=== PATIENT | female | born 1990 | race Caucasian/White ===

== ENCOUNTER 2024-08-31 08:01 | Emergency (ER) | payer OTHER, SELFPAY ==
--- OUTSIDE RECORDS SUMMARY | 2024-08-31 08:12 | XMS_ITS | Clinical Summary ---
Author Organization [facility] Address [address] [place] [id number] Care Team Providers Care Compliance Mgr Name Role Phone No, Physician Primary Care Provider [phone] Social History Tobacco Use Types Packs/Day Years Used Date Smoking Tobacco: Never Assessed Personal Safety Answer Date Recorded Getting School Help Needed Not on file 10/17 Comments Unknown Sex and Gender Information Value Date Recorded Sex Assigned at Not on file Legal Sex Female 9:17 AM MLT Gender Identity Not on file Sexual Orientation Not on file Plan of Treatment Not on file Insurance [facility] [employer] S[employer] Care Teams Compliance Mgr Relationship Specialty Start Date End Date No, Physician PCP - General 10/18/23
--- OUTSIDE RECORDS SUMMARY | 2024-08-31 08:12 | XMS_ITS | Referral Summary ---
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
--- NOTE | 2024-08-31 08:14 | ED.URI ---
HPI - URI/Sore Throat General Chief Complaint: Upper Respiratory Infection Stated Complaint: cough and headache/hot and sore Time Seen by Provider: 08/31/24 08:14 Source: patient and RN notes reviewed Mode of arrival: ambulatory Limitations: no limitations History of Present Illness HPI Narrative: 34 y/o female presented for c/o headache, sore throat, body aches, sinus pressure/congestion, cough, fever/chills. Onset yesterday. Not taking anything for symptoms. Patient vapes. Denies sob, wheezing, n/v/d. MD elicited complaint: cough Related Data Allergies Allergy/AdvReac Type Severity Reaction Status Date / Time cefaclor (From [facility]) Allergy Severe Anaphylaxis Verified 08/31/24 08:24 Review of Systems Review of Systems: per [facility] Social History Social History (Updated 08/31/24 @ 08:48 by Eduarda Payton, WATER QUALITY MANAGER) Tobacco type: e-cigarettes/vaping Exam Narrative: GENERAL: well-appearing, nontoxic no acute distress. EYES: conjunctivae clear ENT: Mucous membranes moist. TM pearly lindsey with dull light reflex bilaterally; no tragal tenderness. Oropharynx erythematous without lesions or exudate, no drooling, no hoarseness, no trismus, uvula midline. No tripod positioning, muffled voice, soft palate or pharyngeal wall bulging NECK: Supple. No lymphadenopathy CHEST: Clear to auscultation, breath sounds equal. No wheezing, rhonchi, rales, or stridor. No respiratory distress, speaks in full sentences. HEART: Regular rate and rhythm. No murmur heard. SKIN: Warm, dry, no rash. NEURO: Alert and oriented x3. PSYCH: Normal mood and affect Course Course Emergency Course: Patient is aware of diagnosis, understands and agrees to treatment plan. Anticipatory guidance given. Patient agrees to follow-up as directed and is aware of reasons to seek care at the emergency department. Portions of this record may have been created with voice recognition software Level of Care: Express Care Visit Vital Signs Vital signs: Vital Signs Temperature 36.9 C 08/31/24 08:17 Pulse Rate 137 H 08/31/24 08:17 Respiratory Rate 18 08/31/24 08:17 Blood Pressure 140/78 08/31/24 08:17 Pulse Oximetry 99 08/31/24 08:17 Oxygen Delivery Room Air 08/31/24 08:17 Temperature 36.9 C 08/31/24 08:17 Pulse Rate 137 H 08/31/24 08:17 Respiratory Rate 18 08/31/24 08:17 Blood Pressure 140/78 08/31/24 08:17 Pulse Oximetry 99 08/31/24 08:17 Oxygen Delivery Room Air 08/31/24 08:17 reviewed MDM - URI/Sore Throat MDM Narrative Medical decision making narrative: Neg flu. and family with flu. Likely too early to detect. Discussed physical exam findings. Advised supportive measures and signs/symptoms to go to the ER. Pt is appropriate for outpt treatment and f/u. Differential Diagnosis Differential diagnosis: Likely upper respiratory infection, sinusitis and viral infection Lab Data Labs: Lab Results 08/31/24 Range/Units 08:38 POC Influenza A Ag Negative (Negative) POC Influenza B Ag Negative (Negative) POC SARS CoV-2 Ag Negative (Negative) Discharge Plan Discharge Clinical Impression: Viral infection Patient Disposition: Home, Self-Care Condition: Stable Instructions: Antibiotic Form, Influenza (ED) Additional Instructions: Influenza negative. You should avoid crowds until you are fever free for 24 hours without the use of fever reducing medications, or the symptoms are improved Rest. Drink plenty of fluids. Tylenol 1000mg every 8 hours as needed for pain/fever Flonase spray and Zyrtec (or Claritin/Evonne) for sinus pressure/congestion over the counter Cough syrup may cause drowsiness; avoid driving or take it at night time. Follow up with your primary care provider as needed Go to the ER for worsening symptoms or concerns Patient Language: [place]aguayan Prescriptions: New benzonatate 200 mg capsule 200 mg PO TID PRN (Reason: cough) Qty: 20 0RF Follow-up/Referrals: Eric,Brittney Carmichael, WATER QUALITY MANAGER [Primary Care Provider] - Time of Disposition: 08:41
[2024-08-31 08:17] VITALS: BP 140/78; PULSE 137; RESP 18; TEMP 36.9; O2SAT 99
[2024-08-31 08:40] LABS: EDCOVIDSCREEN Negative (Negative); EDINFLUASCREEN Negative (Negative); EDINFLUBSCREEN Negative (Negative)
== END 2024-08-31 08:43 | disposition home or self-care (01) ==
PROVIDERS: Emergency Provider Nurse Practitioner Family; PCP Nurse Practitioner Family
DX: B34.9 Viral infection, unspecified (principal); Z20.822 Contact with and (suspected) exposure to COVID-19; F17.290 Nicotine dependence, other tobacco product, uncomplicated
CPT/HCPCS: 87426; 87804; 99203; G0463